=== PATIENT | female | born 1990 | race Two or more races ===

== ENCOUNTER 2023-06-29 12:57 | Emergency (ER) | payer MEDICAID ==
[~2023-06-29] VITALS: Ht 172.7 cm; Wt 113.4 kg
[2023-06-29] MEDS: IV NS 0.9% 500 ML BAG IV ONE (13:37)
[2023-06-29 14:14] LABS: BASOPHILS % (AUTO) 0.3 % (0.0-2.0); EOSINOPHILS # (AUTO) 0.1 K/uL (0.0-0.7); EOSINOPHILS % (AUTO) 0.4 % (0.0-6.0); HEMATOCRIT 42 % (33-45); LYMPHOCYTES # (AUTO) 5.6 K/uL (0.8-4.8); LYMPHOCYTES % (AUTO) 37.4 % (20.0-44.0); MEAN CORPUSCULAR HEMOGLOBIN 23 PG (26.0-33.0); MEAN CORPUSCULAR HGB CONC 31 g/dl (31.0-36.0); MEAN CORPUSCULAR VOLUME 75 fL (82-100); MONOCYTES % (AUTO) 6.6 % (2.0-12.0); NEUTROPHILS # (AUTO) 8.3 K/uL (1.8-8.9); NEUTROPHILS % (AUTO) 55.3 % (43.0-81.0); PLATELET COUNT (AUTO) 437 K/uL (150-450); RED BLOOD CELL COUNT(AUTO) 5.61 MIL/uL (4.0-5.2); RED CELL DISTRIBUTION WIDTH 15.9 % (11.5-15.0)
[2023-06-29 14:20] LABS: PREGNANCY TEST URINE QUAL NEGATIVE (NEGATIVE)
[2023-06-29] MEDS ORDERED: AMOX500T2 PO (14:30)
[2023-06-29] MEDS ORDERED: DOXY-226 PO (14:30)
[2023-06-29] MEDS ORDERED: ALBU18HF2 INH (14:30)
[2023-06-29 14:58] LABS: CALCIUM, SERUM 8.6 mg/dL (8.5-10.1)
[2023-06-29] MEDS: IV NS 0.9% 1,000 ML BAG IV ONE (15:03)
[2023-06-29] MEDS ORDERED: IOHEXOL-350 100 ML VIAL IV ONE (15:30)
[2023-06-29] MEDS ORDERED: IV NS 0.9% 250 ML IV ONE (15:31)
[2023-06-29] MEDS ORDERED: CT SWABBABLE VALVE TRANS SET 1 EA INFUS.SET MC ONE (15:31)
[2023-06-29 17:32] VITALS: BP 129/108; TEMP 98.4; O2SAT 97
== END 2023-06-29 17:32 | disposition home or self-care (01) ==
LOC: ER 13:08
DX: J18.9 Pneumonia, unspecified organism (principal); R00.2 Palpitations; R05.9 Cough, unspecified; J45.909 Unspecified asthma, uncomplicated
CPT/HCPCS: 99285; 96360; 71275; 71045; 96361 ×2; 93005; 85025; 80048; 85378; 84703; 36415; J7030; J7050; Q9967